=== PATIENT | male | born 1940 | race Caucasian/White ===

== ENCOUNTER 2019-08-05 08:00 | Day surgery (SDC) | payer MEDICARE, BC ==
[~2019-08-05 08:00] MED LIST: ACET1TAB25 PO; ATOR40TA71 PO; CALC-854 PO; CELE-193 PO; CLOP75TA33 PO; DEXA4TAB PO; FENO145T46 PO; FISH12002 PO; FLO0.4C PO; FURO-149 PO; IRBE150T24 PO; METO-411 PO; MOME13HF2 IH; NITR0.4T48 SL; OXYGEN NASALCANN; POTA10TA36 PO; TERA5CAP4 PO; UBID100C16 PO
[2019-08-05 09:30] VITALS: BP 123/77
[2019-08-05 09:38] VITALS: BP 119/77
[2019-08-05 09:45] VITALS: BP 138/74
[2019-08-05 10:00] VITALS: BP 125/76
[2019-08-05 10:15] VITALS: BP 121/73
[2019-08-05 10:30] VITALS: BP 128/75
== END 2019-08-05 10:50 | disposition home or self-care (01) ==
LOC: SSTAY O 08:00
PROVIDERS: ATTEND Radiology Diagnostic Radiology
DX: Z48.03 Encounter for change or removal of drains (principal); R91.8 Other nonspecific abnormal finding of lung field
CPT/HCPCS: 71045